=== PATIENT | female | born 1945 | race Caucasian/White ===

== ENCOUNTER 2016-08-07 13:50 | Emergency (ER) | payer MEDICARE ==
[~2016-08-07] VITALS: Ht 172.7 cm; Wt 86.2 kg
[2016-08-07 15:04] LABS: HEMOGLOBIN 14.5 gm/dl (12.3-15.3); RED BLOOD COUNT 4.83 M/UL (4.00-5.10); WHITE BLOOD COUNT 9.4 K/UL (4.5-11.0)
[2016-08-07 15:29] LABS: BUN/CREATININE RATIO 19 (0-10)
== END 2016-08-07 19:45 | disposition home or self-care (01) ==
LOC: ER1 13:50
PROVIDERS: Physician Assistant
DX: G51.0 Bell's palsy (principal); I10 Essential (primary) hypertension; R11.0 Nausea; Z79.899 Other long term (current) drug therapy
CPT/HCPCS: 36415; 70450; 71010; 80053; 82550; 82553; 82962; 83874; 84484; 85025; 93005; 96374; 99284; J2405

== ENCOUNTER → 2016-08-15 | Outpatient (CLI) | payer MEDICARE | LOC: EMI 12:43 | DX: H53.8 Other visual disturbances (principal); R13.13 Dysphagia, pharyngeal phase | CPT/HCPCS: 70551 ==